=== PATIENT | male | born 1995 | race Caucasian/White ===

== ENCOUNTER 2017-01-24 19:02 | Emergency (ER) | payer BC ==
[2017-01-24 19:12] VITALS: BMI 38.0
[2017-01-24 19:30] VITALS: BP 132/63
--- NOTE | 2017-01-24 19:33 | DR.GENAD ---
HPI - PCP Primary Care Physician: NFD - Complaint/Symptoms Chief Complaint Doctors Comments: Patient denies trauma, denies fever or cough Chief Complaint:: BILATERAL BACK PAIN BELOW SHOULDER BLADES; HAPPENS DURING STANDING FROM A SITTING POSITION AND ALSO UPON DEEP INHALATION Self Treatment fo Chief Complaint: ADVIL TAKEN EARLIER TODAY - Source History Provided: Patient - Mode of Arrival Mode of Arrival: Ambulatory - Timing Onset of Chief Complaint: 01/24/17 PMH - PMH Past Medical History: No Past Surgical History: Yes Surgical History: Tonsillectomy - Family History History of Family Medical Conditions: No Family Medical History: Diabetes Mellitus, Cancer, [place], Hypertension - Social History Does patient currently use any type of tobacco product: Yes Have you used tobacco products in the last 12 months: Yes Type of Tobacco Use: Cigarettes Alcohol Use: Occasionally Do you use any recreational Drugs:: No Lives With: Family Lives Where: Home - infectious screening In the last 2 months have you had wt loss of >10#?: NO Have you had fever, night sweats or hemotysis?: No Have you traveled outside the country in the last 6 months?: No Isolation: Standard ROS - Review of Systems Eyes: No Symptoms Reported ENTM: No Symptoms Reported Respiratoy: No Symptoms Reported Cardiovascular: No Symptoms Reported Gastrointestinal/Abdominal: No Symptoms Reported Genitourinary: No Symptoms Reported Neurological: No Symptoms Reported Musculoskeletal: No Symptoms Reported Integumentary: No Symptoms Reported Hematologic/Lymphatic: No Symptoms Reported Endocrine: No Symptoms Reported Psychiatric: No Symptoms Reported All Other Systems: Reviewed and Negative PE - Vital Signs Vitals: Temperature 98.1 F Pulse Rate [Left Brachial] 113 Respiratory Rate 24 Blood Pressure [Right Radial 132/63 Artery] Blood Pressure 143/81 O2 Sat by Pulse Oximetry 100 - General Limitations: No Limitations General Appearance: Alert, In No Apparent Distress - Head Head Exam: Normal Inspection, Atraumatic - Eyes Eye exam: Normal Appearance, PERRL, EOMI - ENT ENT Exam: Normal Exam External Ear Exam: Normal External Inspection, Auricular Hematoma TM/Canal Exam: Bilateral Normal Nose Exam: Normal Nose Exam Mouth Exam: Normal Inspection Throat Exam: Normal Inspection - Neck Neck Exam: Normal Inspection - Chest Chest Inspection: Normal Inspection - Respiratory Respiratory Exam: Normal Lung Sounds Bilat Respiratory Exam: Bilateral Clear to Auscultation - Cardiovascular Cardiovascular Exam: Regular Rate, Normal Rhythm - Abdominal Exam Abdominal Exam: Normal Inspection, Normal Bowel Sounds Abdominal Tenderness: negative: RUQ, RLQ, LUQ, LLQ, Epigastrium, Suprapubic, Diffuse, Mild, Moderate, Severe, Other - Extremities Extremities Exam: Normal Inspection, Full ROM - Back Back Exam: Normal Inspection, Paraspinal Tenderness (upper back) - Neurologic Neurological Exam: Alert, Oriented X3 Course - Education/Counseling Education/Counseling: Counseling Educated On: Treatment, Diagnosis, Prognosis, Needs for Follow Up ROR - Labs Reviewed Result Diagrams: 01/24/17 19:46 01/24/17 19:46 Laboratory: WBC 10.6 X10^3/uL (3.6-10.0) H 01/24/17 19:46 RBC 5.55 X10^6/uL (4.7-6.0) 01/24/17 19:46 Hgb 15.9 g/dL (13.5-18.0) 01/24/17 19:46 Hct 46.2 % (42.0-54.0) 01/24/17 19:46 MCV 83.4 fL (80.0-100.0) 01/24/17 19:46 MCH 28.7 pg (27.0-34.0) 01/24/17 19:46 MCHC 34.4 g/dL (33.0-35.0) 01/24/17 19:46 RDW 13.6 % (11.6-16.5) 01/24/17 19:46 Plt Count 258 X10^3/uL (150.0-450.0) 01/24/17 19:46 MPV 8.1 fL (7.4-11.0) 01/24/17 19:46 Neut % 60.6 % (42.0-75.0) 01/24/17 19:46 Lymph % 21.4 % (21.0-51.0) 01/24/17 19:46 [place] % 11.1 % (0.0-13.0) 01/24/17 19:46 Eos % 6.2 % (0.9-2.9) H 01/24/17 19:46 Baso % 0.7 % (0.2-1.0) 01/24/17 19:46 Neut # 6.4 x10^3/uL (2.2-4.8) H 01/24/17 19:46 Lymph # 2.3 X10^3/uL (1.3-2.9) 01/24/17 19:46 [place] # 1.2 x10^3/uL (0.3-0.8) H 01/24/17 19:46 Eos # 0.7 x10^3/uL (0.0-0.2) H 01/24/17 19:46 Baso # 0.1 X10^3/uL (0.0-0.1) 01/24/17 19:46 Absolute Nucleated RBC 0.0 /100WBC 01/24/17 19:46 Sodium 143 mmol/L (136-145) 01/24/17 19:46 Corrected Sodium TNP 01/24/17 19:46 Potassium 4.1 mmol/L (3.5-5.1) 01/24/17 19:46 Chloride 103 mmol/L (98-107) 01/24/17 19:46 Carbon Dioxide 30.4 mmol/L (21-32) 01/24/17 19:46 BUN 14 mg/dL (7-18) 01/24/17 19:46 Creatinine 1.03 mg/dL (0.70-1.30) 01/24/17 19:46 Est GFR (MDRD) Af Amer > 60 (>60) 01/24/17 19:46 Est GFR (MDRD) Non-Af > 60 (>60) 01/24/17 19:46 Glucose 99 mg/dL (65-99) 01/24/17 19:46 Calcium 9.4 mg/dL (8.5-10.1) 01/24/17 19:46 Corrected Calcium TNP 01/24/17 19:46 Total Bilirubin 0.30 mg/dL (0.2-1.0) 01/24/17 19:46 AST 29 Units/L (15-37) 01/24/17 19:46 ALT 65 Units/L (12-78) 01/24/17 19:46 Alkaline Phosphatase 61 Units/L (46-116) 01/24/17 19:46 Creatine Kinase 129 Units/L (39-308) 01/24/17 19:46 Total Protein 8.0 g/dL (6.4-8.2) 01/24/17 19:46 Albumin 4.1 g/dL (3.4-5.0) 01/24/17 19:46 Globulin 3.9 g/dL (2.5-4.5) 01/24/17 19:46 Albumin/Globulin Ratio 1.1 Ratio (1.1-2.1) 01/24/17 19:46 - XRAY XRAY Interpreted by: Radiologist (Chest: no significant chest abnormality demonstrated.) - Diagnosis Discharge Problem: Back pain Qualifiers: Back pain location: thoracic back pain Chronicity: unspecified Back pain laterality: midline Qualified Code(s): M54.6 - Pain in thoracic spine - Discharge Plan Condition: Stable - Follow ups/Referrals Follow ups/Referrals: NFD,None [Primary Care Provider] - 3 days - Instructions
[2017-01-24 19:55] LABS: BASOPHILS # (AUTO) 0.1 X10^3/uL (0.0-0.1); BASOPHILS % (AUTO) 0.7 % (0.2-1.0); EOSINOPHILS # (AUTO) 0.7 x10^3/uL (0.0-0.2); EOSINOPHILS % (AUTO) 6.2 % (0.9-2.9); HEMATOCRIT 46.2 % (42.0-54.0); HEMOGLOBIN 15.9 g/dL (13.5-18.0); LYMPHOCYTES # (AUTO) 2.3 X10^3/uL (1.3-2.9); LYMPHOCYTES % (AUTO) 21.4 % (21.0-51.0); MEAN CORPUSCULAR HEMOGLOBIN 28.7 pg (27.0-34.0); MEAN CORPUSCULAR HGB CONC 34.4 g/dL (33.0-35.0); MEAN CORPUSCULAR VOLUME 83.4 fL (80.0-100.0); MEAN PLATELET VOLUME 8.1 fL (7.4-11.0); MONOCYTES # (AUTO) 1.2 x10^3/uL (0.3-0.8); MONOCYTES % (AUTO) 11.1 % (0.0-13.0); NEUTROPHILS # (AUTO) 6.4 x10^3/uL (2.2-4.8); NEUTROPHILS % (AUTO) 60.6 % (42.0-75.0); PLATELET COUNT 258 X10^3/uL (150.0-450.0); RED BLOOD COUNT 5.55 X10^6/uL (4.7-6.0); RED CELL DISTRIBUTION WIDTH 13.6 % (11.6-16.5); WHITE BLOOD COUNT 10.6 X10^3/uL (3.6-10.0)
[2017-01-24 19:58] LABS: BLOOD UREA NITROGEN 14 mg/dL (7-18); CALCIUM 9.4 mg/dL (8.5-10.1); CARBON DIOXIDE 30.4 mmol/L (21-32); CHLORIDE 103 mmol/L (98-107); CREATININE 1.03 mg/dL (0.70-1.30); SODIUM 143 mmol/L (136-145); eGFR BLACK RACES > 60 (>60); eGFR NON BLACK RACES > 60 (>60)
[2017-01-24 20:10] LABS: ALANINE AMINOTRANSFERASE 65 Units/L (12-78); ALBUMIN 4.1 g/dL (3.4-5.0); ALKALINE PHOSPHATASE 61 Units/L (46-116); ASPARTATE AMINO TRANSFERASE 29 Units/L (15-37); CREATINE KINASE 129 Units/L (39-308)
--- NOTE | 2017-01-24 20:43 | RAD ---
Examination: Chest, PA and lateral views History: Back pain with deep inspiration Comparison reference: None Findings: Normal appearance of heart, lungs, mediastinum and pleural surfaces. Impression: No significant chest abnormality demonstrated. Reported By:
== END 2017-01-24 20:58 | disposition home or self-care (01) ==
LOC: ER 19:02
DX: M54.6 Pain in thoracic spine (principal)
CPT/HCPCS: 36415; 71020; 80053; 82550; 85025; 99282; 99283